=== PATIENT | male | born 1960 ===

== ENCOUNTER 2020-04-29 19:00 | Outpatient (CLI) | payer BC | END 2020-04-29 19:01 | disposition home or self-care (01) | LOC: SLEEPLAB 19:00 | PROVIDERS: ATTEND Internal Medicine Cardiovascular Disease | DX: G47.33 Obstructive sleep apnea (adult) (pediatric) (principal); R06.83 Snoring; E66.9 Obesity, unspecified; G47.00 Insomnia, unspecified; G47.10 Hypersomnia, unspecified; G47.52 REM sleep behavior disorder; Z68.41 Body mass index [BMI] 40.0-44.9, adult | CPT/HCPCS: 95811 ==